=== PATIENT | female | born 1940 | race Caucasian/White ===

== ENCOUNTER 2017-07-22 08:18 | Emergency (ER) | payer MEDICARE, OTHER ==
[2017-07-22] MEDS ORDERED: LORazepam 0.5 MG Tab PO ONE (08:45)
--- NOTE | 2017-07-22 08:51 | EDM.PDOC ---
ED HPI GENERAL MEDICAL PROBLEM - General Chief Complaint: General Stated Complaint: RT SIDE NUMBNESS Time Seen by Provider: 07/22/17 08:35 Source of Information: Reports: Patient, Old Records History Limitations: Reports: No Limitations - History of Present Illness INITIAL COMMENTS - FREE TEXT/NARRATIVE: 77 yo female presented to the clinic this morning for movements of her R arm and R leg that began about an hour after she had awakened today. She's had similar problems in the past, less severe, for which she was seen by Zoë Harden at [facility]. Today a nurse triaged Ms. Diaz and told her to go to the ER to be seen. It is not clear if there were no openings in the clinic or why she was sent to the ER today. She can control the movements if she tries. Has not had trouble walking. This problem always goes away when she sleeps. Onset: Today Onset Date: 07/22/17 Onset Time: 07:00 Duration: Waxing/Waning (Has had in the past, a little worse today than usual. ) Location: Reports: Upper Extremity, Right, Lower Extremity, Right Quality: Reports: Other (No pain on the R side.) Severity: Moderate Improves with: Reports: Other (effort, or with falling asleep.) Worsens with: Reports: Other (? stress) Context: Reports: Other (Seems to be very anxious, indicates a lot of financial stressors) Associated Symptoms: Reports: Other (anxiety) Treatments CFA: Reports: Other (see below) (None today) - Related Data Allergies Allergy/AdvReac Type Severity Reaction Status Date / Time promethazine HCl AdvReac Confusion Verified 07/22/17 08:25 [From Phenergan] Home Meds: Home Meds Gabapentin 300 mg PO BEDTIME 09/01/13 [History] Citalopram Hydrobromide [Celexa] 30 mg PO BEDTIME 11/17/14 [History] Multivitamin [One Daily Multivitamin] 1 each PO BEDTIME 11/17/14 [History] Vit C/Juan Ac/Lut/Copper/ZnOx [Preservision Lutein Softgel] 1 each PO BEDTIME [History] Cyanocobalamin (Vitamin B-12) [B-12] 500 mcg PO DAILY 07/22/17 [History] Past Medical History HEENT History: Reports: Impaired Vision [employer] History: Reports: Musculoskeletal History: Reports: Other (See Below) Other Musculoskeletal History: spinal stenosis - Infectious Disease History Infectious Disease History: Reports: Chicken Pox - Past Surgical History Other Musculoskeletal Surgeries/Procedures:: rt hip pain Social & Family History - Family History Family Medical History: Noncontributory - Tobacco Use Smoking Status *Q: Never Smoker Second Hand Smoke Exposure: No - Caffeine Use Caffeine Use: Reports: Coffee, Soda - Alcohol Use Days Per Week of Alcohol Use: 0 Number of Drinks Per Day: 0 Total Drinks Per Week: 0 - Recreational Drug Use Recreational Drug Use: No Drug Use in Last 12 Months: No - Living Situation & Occupation Living situation: Reports: Occupation: Retired ED ROS GENERAL - Review of Systems Review Of Systems: See Below Constitutional: Reports: No Symptoms HEENT: Reports: No Symptoms Respiratory: Reports: No Symptoms Cardiovascular: Reports: No Symptoms GI/Abdominal: Reports: No Symptoms : Reports: Frequency (not new) Musculoskeletal: Reports: Back Pain (L side with some radiation to the L leg, not new) Skin: Reports: No Symptoms Neurological: Reports: Other (constant movement of the R arm and R leg that patient can control if she tries/thinks about it. ) Psychiatric: Reports: Anxiety, Depression. Denies: Confusion, Hallucinations, Homicidal Ideation, Suicidal Ideation ED EXAM, GENERAL - Physical Exam Exam: See Below Exam Limited By: No Limitations General Appearance: Alert, WD/WN, Anxious Eye Exam: Bilateral Eye: Normal Inspection Ears: Normal External Exam, Normal Canal, Hearing Grossly Normal Ear Exam: Bilateral Ear: Auricle Normal, Canal Normal Nose: Normal Inspection, Normal Mucosa, No Blood Throat/Mouth: Normal Inspection, Normal Lips, Normal Oropharynx, Normal Voice, No Airway Compromise Head: Atraumatic, Normocephalic Neck: Normal Inspection, Supple, Non-Tender Respiratory/Chest: No Respiratory Distress, Lungs Clear, Normal Breath Sounds, No Accessory Muscle Use Cardiovascular: Regular Rate, Rhythm GI/Abdominal: Normal Bowel Sounds, Soft, Non-Tender, No Distention Back Exam: Normal Inspection Extremities: Normal Inspection, Normal Range of Motion, Non-Tender, No Pedal Edema Neurological: Alert, Oriented, CN II-XII Intact, Normal Cognition, No Motor/ Sensory Deficits Psychiatric: Anxious Skin Exam: Warm, Dry, Intact, Normal Color, No Rash Lymphatic: No Adenopathy Course - Vital Signs Text/Narrative:: Ativan 0.5 mg po-no significant change in movements of R arm/leg Neurology consultation made @ 1000h with Dr. Armenta @ [facility] Recommends MRI Brain with/without contrast, will get test today and have patient follow up tomorrow with her primary to review reading. Last Recorded V/S: Last Vital Signs Temp 36.7 C 07/22/17 08:20 Pulse 66 07/22/17 10:40 Resp 18 07/22/17 10:40 BP 118/61 07/22/17 10:40 Pulse Ox 99 07/22/17 10:40 - Orders/Labs/Meds Orders: Active Orders 24 hr Category Date Time Status Brain w wo Cont [MR] Stat Exams 07/22/17 10:31 Ordered Sodium Chloride 0.9% [Normal Saline] 1,000 ml Med 07/22/17 10:45 Active IV ASDIRECTED Medication Orders Sodium Chloride (Normal Saline) 1,000 mls @ 250 mls/hr IV ASDIRECTED BC Labs: Laboratory Tests 07/22/17 Range/Units 10:42 Creatinine 1.0 (0.55-1.02) mg/dL Est Cr Clr Drug Dosing 41.05 mL/min Estimated GFR (MDRD) 53 L (>60) Meds: Medications Generic Name Dose Route Start Last Admin Trade Name Freq PRN Reason Stop Dose Admin Sodium Chloride 1,000 mls @ 250 mls/hr 07/22/17 10:45 Normal Saline IV ASDIRECTED BC Discontinued Medications Generic Name Dose Route Start Last Admin Trade Name Freq PRN Reason Stop Dose Admin Gadoteridol 10 ml 07/22/17 11:02 Prohance IVPUSH 07/22/17 11:03 ONETIME ONE Lorazepam 0.5 mg 07/22/17 08:45 07/22/17 08:56 Ativan PO 07/22/17 08:46 0.5 mg ONETIME ONE Administration - Radiology Interpretation CT Results Date: 07/22/17 Departure - Departure Time of Disposition: 12:00 Disposition: Home, Self-Care 01 Condition: Fair Clinical Impression: Choreiform movements - Discharge Information Referrals: Zoë Harden [employer]ER [Primary Care Provider] - Forms: ED Department Discharge - My Orders Last 24 Hours: My Active Orders 07/22/17 10:31 Brain w wo Cont [MR] Stat 07/22/17 10:45 Sodium Chloride 0.9% [Normal Saline] 1,000 ml IV ASDIRECTED - Assessment/Plan Last 24 Hours: My Active Orders 07/22/17 10:31 Brain w wo Cont [MR] Stat 07/22/17 10:45 Sodium Chloride 0.9% [Normal Saline] 1,000 ml IV ASDIRECTED
[2017-07-22] MEDS ORDERED: Sodium Chloride 0.9% 1,000 ML IV SCH (10:45)
[2017-07-22] MEDS ORDERED: Gadoteridol 279.3 MG/ML 10 ML SDV IVPUSH ONE (11:02)
[2017-07-22 13:02] VITALS: BP 137/57
== END 2017-07-22 12:30 | disposition home or self-care (01) ==
LOC: FB.ED 08:18
DX: R25.8 Other abnormal involuntary movements (principal); Z88.8 Allergy status to other drugs, medicaments and biological substances; Z79.899 Other long term (current) drug therapy
CPT/HCPCS: 36415; 70553; 82565; 99284; A9270

== ENCOUNTER 2018-02-11 20:05 | Emergency (ER) | payer MEDICARE, OTHER ==
--- NOTE | 2018-02-11 20:37 | EDM.PDOC ---
ED HPI GENERAL MEDICAL PROBLEM - General Chief Complaint: Neurological Problem Stated Complaint: ANXIETY Time Seen by Provider: 02/11/18 20:20 Source of Information: Reports: Patient, Old Records History Limitations: Reports: No Limitations - History of Present Illness INITIAL COMMENTS - FREE TEXT/NARRATIVE: Joe comes to [facility] ED by POV with relatives following a suspected near syncopal episode this evening when she was talking on the phone with her son from [place]. She became lt headed, speech seemed to be slurred while talking , and then upon hanging up she walked to the dresser when she fell, striking her head on the corner of the dresser. There was no LOC. Her other son arrived, helped her to her feet, and then walked to the car for the drive to the ED. Upon arrival, she is alert, orientated, and cooperative, GCS 15. She denies chest pain, palpitations or SOB. She is experiencing some voiding discomfort at times. 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: Musculoskeletal History: Reports: Other (See Below) Other Musculoskeletal History: spinal stenosis 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) Psychiatric History: Reports: Anxiety - Infectious Disease History Infectious Disease History: Reports: Chicken Pox - Past Surgical History Other Musculoskeletal Surgeries/Procedures:: rt hip pain Social & Family History - Family History Family Medical History: Noncontributory - Caffeine Use Caffeine Use: Reports: Coffee, Soda - Living Situation & Occupation Living situation: Reports: Occupation: Retired ED ROS GENERAL - Review of Systems Review Of Systems: See Below Constitutional: Reports: No Symptoms HEENT: Reports: No Symptoms Respiratory: Reports: No Symptoms, Cough Endocrine: Reports: No Symptoms GI/Abdominal: Reports: No Symptoms : Reports: Frequency, Urgency Musculoskeletal: Reports: Other (facial pain from contusion near R eye) Skin: Reports: Bruising (near R eye) Neurological: Reports: Dizziness, Change in Speech, Other (fall) Psychiatric: Reports: Anxiety Hematologic/Lymphatic: Reports: No Symptoms Immunologic: Reports: No Symptoms ED EXAM, NEURO - Physical Exam Exam: See Below Exam Limited By: No Limitations General Appearance: Alert, WD/WN, No Apparent Distress, Anxious Eye Exam: Bilateral Eye: EOMI, Normal Inspection, PERRL Ears: Normal External Exam Nose: Normal Inspection Throat/Mouth: Normal Inspection, Normal Lips, Normal Oropharynx, Normal Voice, No Airway Compromise Head Exam: Normocephalic, Facial Swelling (near corner of R eye, simple contusion) Neck: Normal Inspection, Supple, Non-Tender Respiratory/Chest: Lungs Clear, Normal Breath Sounds, Chest Non-Tender Cardiovascular: Regular Rate, Rhythm, No Murmur GI/Abdominal: Soft, Non-Tender, No Organomegaly, No Distention, No Mass (Female) Exam: Deferred Rectal (Female) Exam: Deferred Neurological: Alert, Normal Mood/Affect, Normal Dorsiflexion, CN II-XII Intact, No Motor/Sensory Deficits, Oriented x 3 Back Exam: Normal Inspection Extremities: Normal Inspection Psychiatric: Normal Affect, Anxious Skin Exam: Warm, Dry, Ecchymosis (corner of R eye) Course - Vital Signs Text/Narrative:: Joe remained stable at the [facility] ED. Screening labs and a 12 lead ekg were baseline. A UC was set up. Last Recorded V/S: Last Vital Signs Temp 36.7 C 02/11/18 20:05 Pulse 78 02/11/18 20:05 Resp 18 02/11/18 20:05 BP 121/69 02/11/18 20:05 Pulse Ox 97 02/11/18 20:05 - Orders/Labs/Meds Orders: Active Orders 24 hr Category Date Time Status EKG Documentation Completion [RC] ASDIRECTED Care 02/11/18 20:31 Active CULTURE URINE [RM] Stat Lab 02/11/18 21:25 Ordered EKG 12 Lead [EK] Routine Ther 02/11/18 20:31 Ordered Labs: Laboratory Tests 02/11/18 02/11/18 02/11/18 Range/Units 20:40 20:40 20:45 WBC 7.8 (4.5-12.0) X10-3/uL RBC 4.29 (3.23-5.20) x10(6)uL Hgb 14.0 (11.5-15.5) g/dL Hct 39.9 (30.0-51.3) % MCV 93.0 (80-96) fL MCH 32.7 (27.7-33.6) pg MCHC 35.2 (32.2-35.4) g/dL RDW 11.9 (11.5-15.5) % Plt Count 239 (125-369) X10(3)uL MPV 9.0 (7.4-10.4) fL Neut % (Auto) 58.4 (46-82) % Lymph % (Auto) 28.4 (13-37) % [place] % (Auto) 9.3 (4-12) % Eos % (Auto) 3 (1.0-5.0) % Baso % (Auto) 1 (0-2) % Neut # (Auto) 4.6 (1.6-8.3) # Lymph # (Auto) 2.2 (0.6-5.0) # [place] # (Auto) 0.7 (0.0-1.3) # Eos # (Auto) 0.2 (0.0-0.8) # Baso # (Auto) 0.1 (0.0-0.2) # Sodium 137 (135-145) mmol/L Potassium 3.9 (3.5-5.3) mmol/L Chloride 103 (100-110) mmol/L Carbon Dioxide 26 (21-32) mmol/L BUN 23 H (7-18) mg/dL Creatinine 1.1 H (0.55-1.02) mg/dL Est Cr Clr Drug Dosing 38.82 mL/min Estimated GFR (MDRD) 48 L (>60) BUN/Creatinine Ratio 20.9 H (9-20) Glucose 105 (80-116) mg/dL Calcium 9.0 (8.6-10.2) mg/dL Total Bilirubin 0.3 (0.1-1.3) mg/dL AST 25 (5-25) IU/L ALT 27 (12-36) U/L Alkaline Phosphatase 85 (56-112) IU/L Total Protein 6.6 (6.0-8.0) g/dL Albumin 3.1 L (3.2-4.6) g/dL Globulin 3.5 g/dL Albumin/Globulin Ratio 0.9 Urine Color Yellow (YELLOW) Urine Appearance Slightly cloudy (CLEAR) Urine pH 7.0 H (5.0-6.5) Ur Specific [place] 1.010 (1.010-1.025) Urine Protein Negative (NEGATIVE) mg/dL Urine Glucose (UA) Normal (NEGATIVE) mg/dL Urine Ketones Negative (NEGATIVE) mg/dL Urine Occult Blood Negative (NEGATIVE) Urine Nitrite Negative (NEGATIVE) Urine Bilirubin Negative (NEGATIVE) Urine Urobilinogen Normal (NEGATIVE) mg/dL Ur Leukocyte Esterase Large H (NEGATIVE) Urine RBC 0-5 (0) Urine WBC 10-20 H (0) Ur Squamous Epith Cells Few H (NS,R,O) Urine Bacteria Few H (NS) Departure - Departure Time of Disposition: 21:30 Disposition: Home, Self-Care 01 Condition: Good Clinical Impression: Near syncope - Discharge Information *PRESCRIPTION DRUG MONITORING PROGRAM REVIEWED*: Not Applicable *COPY OF PRESCRIPTION DRUG MONITORING REPORT IN PATIENT CARMEN: Not Applicable Forms: ED Department Discharge - Problem List & Annotations (1) Near syncope SNOMED Code(s): 123196231 Code(s): R55 - SYNCOPE AND COLLAPSE Status: Acute Current Visit: Yes Annotation/Comment:: She will stay with relatives tonight. She may resume maintanence meds in the am. - Problem List Review Problem List Initiated/Reviewed/Updated: Yes - My Orders Last 24 Hours: My Active Orders 02/11/18 20:31 EKG Documentation Completion [RC] ASDIRECTED EKG 12 Lead [EK] Routine 02/11/18 21:25 CULTURE URINE [RM] Stat - Assessment/Plan Last 24 Hours: My Active Orders 02/11/18 20:31 EKG Documentation Completion [RC] ASDIRECTED EKG 12 Lead [EK] Routine 02/11/18 21:25 CULTURE URINE [RM] Stat Plan: Follow up with PCP.
[2018-02-11 22:35] VITALS: BP 135/62
== END 2018-02-11 21:55 | disposition home or self-care (01) ==
LOC: FB.ED 20:05
DX: R55 Syncope and collapse (principal); Z88.8 Allergy status to other drugs, medicaments and biological substances
CPT/HCPCS: 36415; 80053; 81001; 85025; 87086; 93005; 99284

== ENCOUNTER 2024-04-29 09:23 | Emergency (ER) | payer MEDICARE, OTHER ==
[2024-04-29 11:35] VITALS: BP 173/74; PULSE 75
== END 2024-04-29 11:10 | disposition home or self-care (01) ==
LOC: FB.ED 09:23
DX: S06.0X0A Concussion without loss of consciousness, initial encounter (principal); R55 Syncope and collapse; F41.9 Anxiety disorder, unspecified; I10 Essential (primary) hypertension; R25.8 Other abnormal involuntary movements; Z86.73 Personal history of transient ischemic attack (TIA), and cerebral infarction without residual deficits; Z86.16 Personal history of COVID-19; Z90.49 Acquired absence of other specified parts of digestive tract; Z90.710 Acquired absence of both cervix and uterus; Z88.8 Allergy status to other drugs, medicaments and biological substances; Z79.51 Long term (current) use of inhaled steroids; Z79.899 Other long term (current) drug therapy; W01.198A Fall on same level from slipping, tripping and stumbling with subsequent striking against other object, initial encounter; Y92.019 Unspecified place in single-family (private) house as the place of occurrence of the external cause
CPT/HCPCS: 70450; 72125; 93005; 99284

== ENCOUNTER 2024-07-17 10:52 | Emergency (ER) | payer MEDICARE, OTHER ==
[2024-07-17] MEDS ORDERED: Sodium Chloride 0.9% 10 ML Syringe FLUSH PRN (11:08)
[2024-07-17 11:18] VITALS: BP 140/65; PULSE 68
[2024-07-17] MEDS: LORazepam 2 MG/ML SDV IVPUSH ONE (11:19)
[2024-07-17 11:28] LABS: BASOPHILS ABSOLUTE AUTO 0.1 x10-3/uL (0.0-0.1); BASOPHILS PERCENT AUTO 0.8 % (0.2-1.5); EOSINOPHILS ABSOLUTE AUTO 0.2 x10-3/uL (0.0-0.8); EOSINOPHILS PERCENT AUTO 2.4 % (0.6-8.1); HEMATOCRIT 45.9 % (34.2-48.2); HEMOGLOBIN 15.7 g/dL (11.4-15.5); LYMPHOCYTES ABSOLUTE AUTO 1.7 x10-3/uL (1.0-4.4); MEAN CORPUSCULAR HEMOGLOBIN 32.3 pg (23.9-33.9); MEAN CORPUSCULAR HGB CONC 34.2 g/dL (31.9-34.8); MEAN CORPUSCULAR VOLUME 94.3 fL (76.7-100.5); MEAN PLATELET VOLUME 8.9 fL (7.1-12.4); MONOCYTES ABSOLUTE AUTO 0.7 x10-3/uL (0.3-1.0); NEUTROPHILS ABSOLUTE AUTO 5.7 x10-3/uL (1.5-6.3); NEUTROPHILS PERCENT AUTO 67.8 % (30.8-76.2); PLATELET COUNT,PLT 223 x10(3)uL (151-488); RED BLOOD CELL COUNT 4.86 x10(6)uL (3.60-5.20); RED CELL DISTRIBUTION WIDTH 13.3 % (12.3-16.5); WHITE BLOOD CELL COUNT,WBC 8.3 x10-3/uL (3.0-10.3)
[2024-07-17 11:29] LABS: BILIRUBIN,URINE NEGATIVE (NEGATIVE); GLUCOSE,URINE NORMAL (NORMAL); KETONES,URINE NEGATIVE (NEGATIVE); LEUKOCYTE ESTERASE,URINE NEGATIVE (NEGATIVE); NITRITE,URINE NEGATIVE (NEGATIVE); OCCULT BLOOD,URINE NEGATIVE (NEGATIVE); PROTEIN,URINE NEGATIVE (NEGATIVE); UROBILINOGEN,URINE NORMAL (NEGATIVE)
[2024-07-17 11:30] LABS: APPEARANCE,URINE CLEAR (CLEAR); BACTERIA,URINE FEW (NS); COLOR,URINE YELLOW (YELLOW); RBC,URINE NOT SEEN (0-5); SQUAMOUS EPITHELIAL CELLS,UR FEW (NS,R,O); WBC,URINE 0-5 (0-5)
[2024-07-17 11:32] LABS: BLOOD UREA NITROGEN,BUN 14 mg/dL (7-18); BUN/CREATININE RATIO 12.7 (9-20); CALCIUM 9.2 mg/dL (8.6-10.2); CARBON DIOXIDE,CO2 27 mmol/L (21-32); CHLORIDE,CL 101 mmol/L (100-110); CREATININE 1.1 mg/dL (0.55-1.02); EST CRCL DRUG DOSING (CG) 32.29 mL/min; ESTIMATED GFR 49 mL/min (>60); GLUCOSE RANDOM 93 mg/dL (80-116); SODIUM,NA 138 mmol/L (135-145)
[2024-07-17 11:38] LABS: A/G RATIO 1.1; ALANINE AMINOTRANSFERASE,ALT 18 U/L (12-36); ALBUMIN 3.6 g/dL (3.2-4.6); ALKALINE PHOSPHATASE 90 IU/L (56-112); ASPARTATE AMNIOTRANSFERASE,AST 19 IU/L (5-25); BILIRUBIN TOTAL 0.7 mg/dL (0.1-1.3); MAGNESIUM 1.9 mg/dL (1.8-2.5); PROTEIN TOTAL,TP 6.9 g/dL (6.0-8.0)
[2024-07-17 11:39] LABS: TROPONIN I 11.9 pg/mL (4.0-60.3)
[2024-07-17 11:40] LABS: C-REACTIVE PROTEIN < 0.50 mg/dL (<0.50)
[2024-07-17] MEDS: Sodium Chloride 0.9% 1,000 ML IV ONE (12:19)
== END 2024-07-17 15:07 | disposition home or self-care (01) ==
LOC: FB.ED 10:52
DX: E86.0 Dehydration (principal); F41.0 Panic disorder [episodic paroxysmal anxiety]; E87.20 Acidosis, unspecified; E78.00 Pure hypercholesterolemia, unspecified; Z88.8 Allergy status to other drugs, medicaments and biological substances; Z79.51 Long term (current) use of inhaled steroids; Z79.899 Other long term (current) drug therapy; Z86.73 Personal history of transient ischemic attack (TIA), and cerebral infarction without residual deficits; Z86.16 Personal history of COVID-19
CPT/HCPCS: 36415; 80053; 81001; 82947; 83605; 83735; 84484; 85025; 86140; 87086; 93005; 96361; 96374; 99284; J2060; J7030; 93010

== ENCOUNTER 2024-09-13 12:44 | Emergency (ER) | payer MEDICARE, OTHER ==
[2024-09-13] MEDS: LORazepam 0.5 MG Tab PO ONE (13:30)
[2024-09-13 15:49] VITALS: BP 156/68; PULSE 81
== END 2024-09-13 14:40 | disposition home or self-care (01) ==
LOC: FB.ED 12:44
DX: F41.9 Anxiety disorder, unspecified (principal); F41.0 Panic disorder [episodic paroxysmal anxiety]; Z88.8 Allergy status to other drugs, medicaments and biological substances; Z79.899 Other long term (current) drug therapy; Z90.49 Acquired absence of other specified parts of digestive tract; Z86.16 Personal history of COVID-19; Z90.710 Acquired absence of both cervix and uterus
CPT/HCPCS: 93005; 99283; A9270

== ENCOUNTER 2025-02-24 14:49 | Emergency (ER) | payer MEDICARE, OTHER ==
[2025-02-24 19:49] VITALS: BP 158/80; PULSE 74
== END 2025-02-24 19:30 | disposition home or self-care (01) ==
LOC: FB.ED 14:49
DX: G25.5 Other chorea (principal); E78.00 Pure hypercholesterolemia, unspecified; Z88.8 Allergy status to other drugs, medicaments and biological substances; Z79.899 Other long term (current) drug therapy; Z86.73 Personal history of transient ischemic attack (TIA), and cerebral infarction without residual deficits; Z86.16 Personal history of COVID-19
CPT/HCPCS: 93005; 93010; 99283; 99284; A9270-GY